=== PATIENT | female | born 1985 | race Asian ===

== ENCOUNTER 2018-08-07 03:58 | Emergency (ER) | payer BC ==
[~2018-08-07] VITALS: Ht 149.9 cm; Wt 41.5 kg
[2018-08-07 04:04] VITALS: Ht 149.9 cm; Wt 41.5 kg
[2018-08-07 04:29] VITALS: BP 140/88
== END 2018-08-07 04:29 | disposition home or self-care (01) ==
LOC: ED 03:58
DX: L50.9 Urticaria, unspecified (principal)

== ENCOUNTER 2018-08-07 21:20 | Emergency (ER) | payer BC ==
[~2018-08-07] VITALS: Ht 149.9 cm; Wt 42.2 kg
[2018-08-07 21:24] VITALS: BP 123/76; Ht 149.9 cm; Wt 42.2 kg
== END 2018-08-08 01:33 | disposition home or self-care (01) ==
LOC: ED 21:20
DX: L50.9 Urticaria, unspecified (principal); R06.02 Shortness of breath
CPT/HCPCS: J0171